=== PATIENT | male | born 1960 | race Caucasian/White ===

== ENCOUNTER → 2018-08-15 08:13 | Outpatient (CLI) | payer OTHER, SELFPAY ==
[2018-08-15 09:53] LABS: Alanine Aminotransferase 34 IU/L (21-72); Albumin 4.3 g/dL (3.5-5.0); Albumin Globulin Ratio 1.5 (1.0-2.8); Alkaline Phosphatase 70 U/L (38-126); Aspartate Aminotransferase 26 IU/L (17-59); BUN Creatinine Ratio 16.7 (6-22); Bilirubin Total 0.9 mg/dL (0.2-1.3); Blood Urea Nitrogen 15 mg/dL (9-20); Calcium 8.9 mg/dL (8.4-10.2); Carbon Dioxide 31 mmol/L (22-32); Chloride 100 mmol/L (98-107); Cholesterol 181 mg/dL (140-199); Estimated Glomerular Filt Rate > 60.0 mL/min (>60); Globulin 2.8 g/dL (1.7-4.1); Glucose 103 mg/dL (70-100); HDL Cholesterol 41 mg/dL (40-60); HEMOLYSIS < 15 (0-50); LDL Cholesterol Calculated 106 mg/dL (<100); Potassium 3.6 mmol/L (3.4-5.1); Sodium 138 mmol/L (137-145); Total Protein 7.1 g/dL (6.3-8.2); Triglycerides 172 mg/dL (35-150)
[2018-08-15 10:04] LABS: Creatinine Urine Random 279.6 mg/dL
[2018-08-15 10:08] LABS: Microalbumi Creatinin Ratio Ur 8.9 ug/mg CR (<30); Microalbumin Urine Random 2.5 mg/dL (0-1.6)
== END ==
PROVIDERS: Family Provider Family Medicine; Visit Provider Physician Assistant
DX: E78.2 Mixed hyperlipidemia (principal); I10 Essential (primary) hypertension
CPT/HCPCS: 36415; 80053; 80061; 82043; 82570

== ENCOUNTER → 2019-03-18 07:11 | Outpatient (CLI) | payer OTHER, SELFPAY ==
[2019-03-18 08:34] LABS: BUN Creatinine Ratio 21.1 (6-22); Blood Urea Nitrogen 19 mg/dL (9-20); Calcium 9.4 mg/dL (8.4-10.2); Carbon Dioxide 32 mmol/L (22-32); Chloride 103 mmol/L (98-107); Estimated Glomerular Filt Rate > 60.0 mL/min (>60); Glucose 93 mg/dL (80-110); HEMOLYSIS < 15 (0-50); Potassium 4.1 mmol/L (3.4-5.1); Sodium 141 mmol/L (137-145)
== END ==
PROVIDERS: Family Provider Family Medicine; Visit Provider Physician Assistant
DX: E78.2 Mixed hyperlipidemia (principal); I10 Essential (primary) hypertension
CPT/HCPCS: 36415; 80048

== ENCOUNTER → 2019-04-01 11:41 | Outpatient (CLI) | payer OTHER, SELFPAY ==
[2019-04-01 13:33] LABS: Prostate Specific Antigen Scrn 1.46 ng/mL (0.1-4.0)
== END ==
PROVIDERS: Family Provider Family Medicine; Visit Provider Physician Assistant
DX: Z12.5 Encounter for screening for malignant neoplasm of prostate (principal)
CPT/HCPCS: 36415; G0103

== ENCOUNTER → 2019-11-25 16:16 | Outpatient (CLI) | payer OTHER, SELFPAY ==
[2019-11-25 17:15] LABS: Hematocrit 42.1 % (41-53); Hemoglobin 14.2 g/dL (13.5-17.5); Mean Corpuscular HGB Conc 33.7 % (30-36); Mean Corpuscular Volume 92.1 fL (80-100); Platelet Count 213 X10^3/uL (150-400); Red Blood Cell Count 4.58 X10^6/uL (4.5-5.9); Red Cell Distribution Width 13.8 % (11.6-14.8); White Blood Cell Count 6.7 X10^3/uL (4.5-11.0)
[2019-11-25 17:33] LABS: Alanine Aminotransferase 36 IU/L (<50); Albumin 4.6 g/dL (3.5-5.0); Albumin Globulin Ratio 1.6 (1.0-2.8); Alkaline Phosphatase 71 U/L (38-126); Aspartate Aminotransferase 30 IU/L (17-59); BUN Creatinine Ratio 25.5 (6-22); Bilirubin Total 0.7 mg/dL (0.2-1.3); Blood Urea Nitrogen 24 mg/dL (9-20); Calcium 9.6 mg/dL (8.4-10.2); Carbon Dioxide 29 mmol/L (22-32); Chloride 104 mmol/L (98-107); Estimated Glomerular Filt Rate > 60.0 mL/min (>60); Globulin 2.8 g/dL (1.7-4.1); Glucose 89 mg/dL (80-110); HEMOLYSIS < 15 (0-50); Potassium 3.9 mmol/L (3.4-5.1); Sodium 141 mmol/L (137-145); Total Protein 7.4 g/dL (6.3-8.2)
== END ==
PROVIDERS: Family Provider Family Medicine; PCP Nurse Practitioner Family; Referring Provider Nurse Practitioner Family; Visit Provider Nurse Practitioner Family
DX: Z00.00 Encounter for general adult medical examination without abnormal findings (principal); I10 Essential (primary) hypertension
CPT/HCPCS: 36415; 80053; 85027

== ENCOUNTER → 2020-08-09 10:28 | Outpatient (CLI) | payer OTHER, SELFPAY ==
[2020-08-09 11:08] LABS: Hematocrit 44.3 % (41-53); Hemoglobin 14.7 g/dL (13.5-17.5); Mean Corpuscular HGB Conc 33.1 % (30-36); Mean Corpuscular Hemoglobin 30.6 PG (26-34); Mean Corpuscular Volume 92.4 fL (80-100); Platelet Count 208 X10^3/uL (150-400); Red Blood Cell Count 4.79 X10^6/uL (4.5-5.9); Red Cell Distribution Width 13.4 % (11.6-14.8); White Blood Cell Count 6.4 X10^3/uL (4.5-11.0)
[2020-08-09 11:20] LABS: Alanine Aminotransferase 28 IU/L (<50); Albumin 4.6 g/dL (3.5-5.0); Albumin Globulin Ratio 1.6 (1.0-2.8); Alkaline Phosphatase 73 U/L (38-126); Aspartate Aminotransferase 27 IU/L (17-59); BUN Creatinine Ratio 26.1 (6-22); Bilirubin Total 1.1 mg/dL (0.2-1.3); Blood Urea Nitrogen 23 mg/dL (9-20); Calcium 9.8 mg/dL (8.4-10.2); Carbon Dioxide 31 mmol/L (22-32); Chloride 103 mmol/L (98-107); Estimated Glomerular Filt Rate > 60.0 mL/min (>60); Globulin 2.8 g/dL (1.7-4.1); Glucose 100 mg/dL (80-110); HEMOLYSIS < 15 (0-50); Sodium 141 mmol/L (137-145); Total Protein 7.4 g/dL (6.3-8.2)
[2020-08-09 11:47] LABS: Prostate Specific Antigen Scrn 1.53 ng/mL (0.1-4.0)
== END ==
PROVIDERS: Family Provider Family Medicine; PCP Nurse Practitioner Family; Referring Provider Nurse Practitioner Family; Visit Provider Nurse Practitioner Family
DX: R10.31 Right lower quadrant pain (principal); R35.0 Frequency of micturition; Z12.5 Encounter for screening for malignant neoplasm of prostate
CPT/HCPCS: 36415; 80053; 85027; G0103

== ENCOUNTER → 2020-08-17 09:26 | Outpatient (CLI) | payer OTHER, SELFPAY ==
--- NOTE | 2020-08-17 09:29 | DI.US.S_ITS ---
PROCEDURE: US ABDOMEN COMPLETE INDICATIONS: right inguinal pain, also please look at kidneys TECHNIQUE: Real-time scanning was performed of the abdominal and retroperitoneal organs, with image documentation. COMPARISON: None. FINDINGS: Liver: Liver is normal in size and homogeneous in echotexture. Gallbladder: No gallstones. No gallbladder wall thickening, pericholecystic fluid or sonographic Yanez's sign. Biliary ducts: Intrahepatic bile ducts are non-dilated. Extrahepatic bile duct caliber measures 3 mm. Normal is 6-7 mm or less in diameter, or 10 mm or less post-cholecystectomy. Pancreas: Visualized portions of the pancreas are sonographically normal. Spleen: Spleen is normal in size and homogeneous in echotexture. Kidneys: Kidneys are normal in size and echotexture. Right kidney measures 11.8 cm long; left kidney measures 12.3 cm long. No hydronephrosis or nephrolithiasis. There is a 2.7 cm diameter parapelvic cyst in left kidney. No solid masses. Aorta: Visualized aorta is normal in caliber at less than 3 cm. Iliacs: Proximal common iliac arteries are normal in caliber at less than 2.5 cm. IVC: Intrahepatic inferior vena cava is patent. Miscellaneous: No free abdominal fluid. Prominent left inguinal lymph nodes are seen in the right groin; the largest measuring 0.7 x 2.6 cm. Possible left inguinal hernia. IMPRESSION: 1. Possible right inguinal hernia. Unfortunately, the patient was unable to perform consistent Valsalva. If clinically indicated, CT may be helpful. 2. Prominent left inguinal lymph nodes, most likely reactive. 3. A 2.7 cm parapelvic cyst in the left kidney. Dictated by: Barbi Keller M.D. on 08/17/2020 at 11:22 Approved by: Barbi Keller M.D. on 08/17/2020 at 11:27
== END ==
PROVIDERS: Family Provider Family Medicine; PCP Nurse Practitioner Family; Referring Provider Nurse Practitioner Family; Visit Provider Nurse Practitioner Family
DX: R10.31 Right lower quadrant pain (principal); R35.0 Frequency of micturition; Q61.01 Congenital single renal cyst
CPT/HCPCS: 76700

== ENCOUNTER → 2020-08-27 09:52 | Outpatient (CLI) | payer OTHER, SELFPAY ==
--- NOTE | 2020-08-27 09:54 | DI.MRI.S_ITS ---
PROCEDURE: MR PELVIS WO CON INDICATIONS: poss inguinal hernia right side TECHNIQUE: Axial 2-D FLASH in- and [id number], axial breath-hold T2 FSE, axial STIR FSE. Optional contrast may be given, followed by axial 2-D FLASH with fat saturation acquired over the lesion of concern. COMPARISON: [facility], US, US ABDOMEN COMPLETE, 08/17/2020, 9:09. FINDINGS: Image quality: Excellent. Region of interest: Right groin where prior ultrasound head raise concern for possible inguinal hernia Bones: Nearby osseous structures demonstrate normal overall marrow signal. IMPRESSION: MR scanning over the inguinal canals bilaterally show no evidence of fat containing or bowel containing hernia. No adenopathy is seen. Symmetric lymph nodes are seen at each groin, 1 each, and these are not enlarged, with short axis dimension 1.1 cm. No visualized evidence of marrow space disease or soft tissue mass. Dictated by: Kana Mcmahan M.D. on 08/28/2020 at 13:57 Approved by: Kana Mcmahan M.D. on 08/28/2020 at 14:00
== END ==
PROVIDERS: Family Provider Family Medicine; PCP Nurse Practitioner Family; Referring Provider Nurse Practitioner Family; Visit Provider Nurse Practitioner Family
DX: R93.5 Abnormal findings on diagnostic imaging of other abdominal regions, including retroperitoneum (principal); R10.31 Right lower quadrant pain
CPT/HCPCS: 72195

== ENCOUNTER → 2020-10-24 15:17 | Outpatient (CLI) | payer OTHER, SELFPAY ==
[2020-10-24 18:51] LABS: Bacteria Urine None Seen
[2020-10-24 19:24] LABS: Appearance Urine UA SL CLOUDY; Bilirubin Urine UA NEGATIVE (NEGATIVE); Color Urine UA RED; Glucose Urine UA NEGATIVE (Negative); Ketones Urine UA NEGATIVE (NEGATIVE); Leukocyte Esterase Urine UA TRACE (NEGATIVE); Nitrite Urine UA NEGATIVE (Negative); Occult Blood Urine UA 3+ (Negative); Protein Urine UA 1+ (Negative); Specific Gravity Urine UA <=1.005 (1.000-1.035); Urobilinogen Urine UA 0.2 E.U./dL (0.2)
[2020-10-24 19:54] LABS: Culture Indicated Urine Cult Not Indicated; RBC Urine 30-100/HPF (0-5/HPF); WBC Urine 0-1/HPF (0-5/HPF)
== END ==
PROVIDERS: Family Provider Family Medicine; PCP Nurse Practitioner Family; Visit Provider Nurse Practitioner Family
DX: R31.29 Other microscopic hematuria (principal); R10.2 Pelvic and perineal pain; R30.0 Dysuria
CPT/HCPCS: 81001

== ENCOUNTER → 2020-10-24 15:42 | Outpatient (CLI) | payer OTHER, SELFPAY ==
--- NOTE | 2020-10-24 15:44 | DI.CT.S_ITS ---
PROCEDURE: CT KIDNEY URETER BLADDER (KUB) INDICATIONS: hematuria, right flank pain TECHNIQUE: Axial sections were acquired from the lung bases to the pubic symphysis. Coronal and sagittal reformats were performed. For radiation dose reduction, the following was used: automated exposure control, adjustment of mA and/or kV according to patient size. COMPARISON:None. FINDINGS: Image quality: Excellent. Lung bases: Unremarkable. Heart: No significant findings. URINARY: Right Kidney: No stones or hydronephrosis. Right Ureter: No hydroureter. Left Kidney: Punctate mid kidney 1 mm calculus at the collecting system, but at the ureteropelvic junction on the left there is a 3 mm stone producing a mild degree of hydronephrosis on left. This calculus has a radiodensity of 486 Hounsfield units. Left Ureter: No hydroureter. Bladder: Normal wall thickness. No stones. ABDOMEN: Liver: Unremarkable. Gallbladder: Unremarkable. Biliary ducts: Unremarkable. Pancreas: Unremarkable. Spleen: Unremarkable. Adrenal Glands: Unremarkable. Stomach and Bowel: Stomach, small bowel loops, and colon are unremarkable. Peritoneum: No abnormal intraperitoneal fluid. No free air. Ventral Wall: No hernia. Abdominal Nodes: No enlarged retroperitoneal or mesenteric lymph nodes. Vessels: Aorta and inferior vena cava are normal in size. PELVIS: Pelvic Organs: Unremarkable. Pelvic Nodes: Unremarkable. Miscellaneous: No inguinal hernias are seen. Bones: Unremarkable. IMPRESSION: 3 mm ureteropelvic junction calculus at the left urinary tract producing a mild hydronephrosis on the left. There is an additional punctate calculus at the middle 3rd collecting system of the left kidney that is nonobstructive. Dictated by: Kana Mcmahan M.D. on 10/24/2020 at 16:13 Approved by: Kana Mcmahan M.D. on 10/24/2020 at 16:16
[2020-10-24 17:35] LABS: Hematocrit 44.2 % (41-53); Mean Corpuscular HGB Conc 33.9 % (30-36); Mean Corpuscular Hemoglobin 31.3 PG (26-34); Mean Corpuscular Volume 92.3 fL (80-100); Platelet Count 216 X10^3/uL (150-400); Red Blood Cell Count 4.79 X10^6/uL (4.5-5.9); Red Cell Distribution Width 13.7 % (11.6-14.8); White Blood Cell Count 7.5 X10^3/uL (4.5-11.0)
[2020-10-24 17:50] LABS: Alanine Aminotransferase 27 IU/L (<50); Albumin 4.6 g/dL (3.5-5.0); Albumin Globulin Ratio 1.5 (1.0-2.8); Alkaline Phosphatase 72 U/L (38-126); Aspartate Aminotransferase 30 IU/L (17-59); BUN Creatinine Ratio 15.8 (6-22); Blood Urea Nitrogen 15 mg/dL (9-20); Calcium 9.6 mg/dL (8.4-10.2); Carbon Dioxide 27 mmol/L (22-32); Chloride 101 mmol/L (98-107); Estimated Glomerular Filt Rate > 60.0 mL/min (>60); Glucose 96 mg/dL (80-110); HEMOLYSIS < 15 (0-50); Potassium 3.5 mmol/L (3.4-5.1); Sodium 139 mmol/L (137-145); Total Protein 7.6 g/dL (6.3-8.2)
== END ==
PROVIDERS: Family Provider Family Medicine; PCP Nurse Practitioner Family; Referring Provider Nurse Practitioner Family; Visit Provider Nurse Practitioner Family
DX: R31.29 Other microscopic hematuria (principal); R10.9 Unspecified abdominal pain; N13.2 Hydronephrosis with renal and ureteral calculous obstruction; R10.2 Pelvic and perineal pain; R30.0 Dysuria
CPT/HCPCS: 36415; 74176; 80053; 81001; 85027

== ENCOUNTER → 2021-02-06 14:02 | Outpatient (CLI) | payer OTHER, SELFPAY ==
--- NOTE | 2021-02-06 14:05 | DI.CT.S_ITS ---
PROCEDURE: CT KIDNEY URETER BLADDER (KUB) INDICATIONS: kidney stone TECHNIQUE: Axial sections were acquired from the lung bases to the pubic symphysis. Coronal and sagittal reformats were performed. For radiation dose reduction, the following was used: automated exposure control, adjustment of mA and/or kV according to patient size. COMPARISON: None. FINDINGS: Image quality: Excellent. Lung bases: Unremarkable. Heart: No significant findings. URINARY: Nonobstructing punctate calculus in the left posterior upper pole (series 2, image 43). No additional urinary tract calculus. Suspected peripelvic cyst anterior to the left renal pelvis extending into the upper pole (versus a mildly dilated upper pole calyx) No hydronephrosis or hydroureter. Urinary bladder unremarkable. ABDOMEN: Liver: Uniform attenuation. Gallbladder: Unremarkable. Biliary ducts: Nondilated. Pancreas: No adjacent inflammatory changes or pancreatic ductal dilatation. Spleen: Normal size and appearance. Adrenal Glands: No nodule or mass. Stomach and Bowel: No abnormally dilated or thickened loop of bowel. No pericolonic or mesenteric inflammatory changes. Peritoneum: No abnormal intraperitoneal fluid. No free air. Ventral Wall: No hernia. Abdominal Nodes: No enlarged retroperitoneal or mesenteric lymph nodes. Vessels: Aorta and inferior vena cava are normal in size. PELVIS: Pelvic Organs: Enlarged prostate. Pelvic Nodes: No threshold enlarged pelvic or inguinal lymph node. Miscellaneous: Bilateral fat containing inguinal hernias. Bones: No acute or suspicious osseous lesion. Degenerative changes throughout the spine. IMPRESSION: Punctate nonobstructing left renal calculus. Small left anterior cysts versus mild left renal pelvis and adjacent anterior upper pole calyx. Dictated by: Anthony Vazquez M.D. on 02/06/2021 at 15:35 Approved by: Anthony Vazquez M.D. on 02/06/2021 at 15:40
== END ==
PROVIDERS: Family Provider Family Medicine; PCP Nurse Practitioner Family; Referring Provider Specialist; Visit Provider Specialist
DX: N20.0 Calculus of kidney (principal); R10.9 Unspecified abdominal pain
CPT/HCPCS: 74176

== ENCOUNTER → 2021-02-14 15:17 | Outpatient (CLI) | payer OTHER, SELFPAY ==
[2021-02-14 16:19] LABS: Calcium 9.4 mg/dL (8.4-10.2); Uric Acid 5.7 mg/dL (3.5-8.5)
[2021-02-15 16:27] LABS: Calcium 9.5 mg/dL (8.6-10.2); Parathyroid Hormone, Intact 46 pg/mL (15-65)
== END ==
PROVIDERS: Family Provider Family Medicine; PCP Nurse Practitioner Family; Referring Provider Specialist; Visit Provider Specialist
DX: N20.0 Calculus of kidney (principal)
CPT/HCPCS: 36415; 82310; 83970; 84550

== ENCOUNTER → 2021-11-02 17:25 | Outpatient (CLI) | payer OTHER, SELFPAY ==
[2021-11-02 18:14] LABS: Creatinine Urine Random 169.6 mg/dL
[2021-11-02 18:19] LABS: Microalbumin Urine Random 1.2 mg/dL (0-1.6)
== END ==
PROVIDERS: Family Provider Family Medicine; PCP Pediatrics; Referring Provider Pediatrics; Visit Provider Pediatrics
DX: I10 Essential (primary) hypertension (principal)
CPT/HCPCS: 82043; 82570

== ENCOUNTER → 2021-11-05 16:48 | Outpatient (CLI) | payer OTHER, SELFPAY ==
--- NOTE | 2021-11-05 16:51 | DI.RAD.S_ITS ---
PROCEDURE: XR ACUTE ABDOMEN SERIES INDICATIONS: ascites TECHNIQUE: One view chest and two views of the abdomen were acquired. COMPARISON: None. FINDINGS: Surgical changes and devices: None. Chest: Lungs are clear. Heart size is normal. No pleural effusions. No pneumoperitoneum. Abdomen: Bowel gas pattern is normal. No suspicious calcifications. Visualized solid organ contours appear normal. Bones: Fish shaped scoliotic curvature is present. IMPRESSION: No bowel obstruction. Ascites is difficult to determine on the basis of x-ray exam. If concern persists, CT or ultrasound is recommended. Dictated by: Christine Batista M.D. on 11/06/2021 at 15:03 Approved by: Christine Batista M.D. on 11/06/2021 at 15:05
[2021-11-05 17:14] LABS: Add Manual Diff / Slide Review NO; Basophils Absolute Auto 0 /uL (0-100); Basophils Percent Auto 0.6 % (0-2); Eosinophils Absolute Auto 100 /uL (0-450); Eosinophils Percent Auto 1.5 % (2-4); Hematocrit 41.1 % (41-53); Hemoglobin 14.1 g/dL (13.5-17.5); Lymphocytes Absolute Auto 1700 /uL (1100-4500); Lymphocytes Percent Auto 30.1 % (25-40); Mean Corpuscular HGB Conc 34.2 % (30-36); Mean Corpuscular Hemoglobin 31.2 PG (26-34); Mean Corpuscular Volume 91.1 fL (80-100); Monocytes Absolute Auto 400 /uL (0-900); Monocytes Percent Auto 7.8 % (3-14); Neutrophils Absolute Auto 3400 /uL (1500-7000); Platelet Count 200 X10^3/uL (150-400); Red Blood Cell Count 4.51 X10^6/uL (4.5-5.9); Red Cell Distribution Width 14.3 % (11.6-14.8); White Blood Cell Count 5.7 X10^3/uL (4.5-11.0)
[2021-11-05 17:23] LABS: INR 1.2 (0.9-1.3); Prothrombin Time 12.9 SECONDS (10.1-12.7)
[2021-11-05 17:33] LABS: Alanine Aminotransferase 22 IU/L (<50); Albumin 4.6 g/dL (3.5-5.0); Albumin Globulin Ratio 1.7 (1.0-2.8); Alkaline Phosphatase 74 U/L (38-126); Aspartate Aminotransferase 24 IU/L (17-59); BUN Creatinine Ratio 14.4 (6-22); Bilirubin Total 0.8 mg/dL (0.2-1.3); Blood Urea Nitrogen 13 mg/dL (9-20); Calcium 9.4 mg/dL (8.4-10.2); Carbon Dioxide 29 mmol/L (22-32); Chloride 102 mmol/L (98-107); Estimated Glomerular Filt Rate > 60 mL/min (>60); Globulin 2.7 g/dL (1.7-4.1); Glucose 106 mg/dL (80-110); HEMOLYSIS < 15 (0-50); Potassium 3.7 mmol/L (3.4-5.1); Sodium 139 mmol/L (137-145); Total Protein 7.3 g/dL (6.3-8.2)
[2021-11-05 18:16] LABS: TSH w/ Reflex to FT4 1.44 uIU/mL (0.47-4.68)
[2021-11-05 18:19] LABS: Appearance Urine UA CLEAR; Bilirubin Urine UA NEGATIVE (NEGATIVE); Color Urine UA YELLOW; Glucose Urine UA NEGATIVE (Negative); Ketones Urine UA NEGATIVE (NEGATIVE); Leukocyte Esterase Urine UA NEGATIVE (NEGATIVE); Nitrite Urine UA NEGATIVE (Negative); Occult Blood Urine UA TRACE-LYSED (Negative); Protein Urine UA NEGATIVE (Negative); Specific Gravity Urine UA 1.015 (1.000-1.035); Urobilinogen Urine UA 0.2 E.U./dL (0.2); pH Urine UA 5.5 (4.5-8.0)
[2021-11-05 19:33] LABS: Bacteria Urine None Seen; Culture Indicated Urine Cult Not Indicated; RBC Urine 0-1/HPF (0-5/HPF); WBC Urine None Seen (0-5/HPF)
== END ==
PROVIDERS: Family Provider Family Medicine; PCP Pediatrics; Referring Provider Pediatrics; Visit Provider Pediatrics
DX: E78.2 Mixed hyperlipidemia (principal); I10 Essential (primary) hypertension; R18.8 Other ascites; R31.9 Hematuria, unspecified
CPT/HCPCS: 36415; 74022; 80053; 81001; 84443; 85025; 85610

== ENCOUNTER → 2021-11-09 15:54 | Outpatient (CLI) | payer OTHER, SELFPAY ==
--- NOTE | 2021-11-09 15:57 | DI.US.S_ITS ---
PROCEDURE: US ABDOMEN COMPLETE INDICATIONS: ascites TECHNIQUE: Real-time scanning was performed of the abdominal and retroperitoneal organs, with image documentation. COMPARISON: [facility], US, US ABDOMEN COMPLETE, 08/17/2020, 9:09. FINDINGS: Study limited secondary to patient scanning characteristics. Liver: Liver is not well visualized. No gross abnormalities identified. Gallbladder: Gallbladder is normal in sonographic appearance without gallstones, gallbladder wall thickening, pericholecystic fluid, or abnormal sonographic Yanez's. Biliary ducts: Intrahepatic and extrahepatic biliary ducts are not well visualized. Common bile duct measures approximately 2.5 mm in diameter. Pancreas: Visualized portions of the pancreas are sonographically normal. Spleen: Spleen is normal in size and homogeneous in echotexture. Kidneys: Kidneys are normal in size and echotexture. Right kidney measures 11.3 cm long; left kidney measures 11.4 cm long. There is a 2.3 x 3.6 x 2.4 cm cyst in the left mid kidney. Possible nonobstructing stone noted in the lower pole the left kidney measuring approximately 5 mm in size. No hydronephrosis . No solid masses. Aorta: Visualized aorta is normal in caliber at less than 3 cm. Iliacs: Proximal common iliac arteries are normal in caliber at less than 2.5 cm. IVC: IVC not well visualized. Miscellaneous: No free abdominal fluid. IMPRESSION: Moderately limited evaluation of the abdomen secondary to patient scanning characteristics and bowel gas. The liver, gallbladder, pancreas, and right kidney appear unremarkable. There is a 3.6 cm left mid pole renal cyst and questionable nonobstructing 5 mm left lower pole renal stone. Dictated by: Papito Wayne M.D. on 11/09/2021 at 18:55 Approved by: Papito Wayne M.D. on 11/09/2021 at 18:59
== END ==
PROVIDERS: Family Provider Family Medicine; PCP Pediatrics; Referring Provider Pediatrics; Visit Provider Pediatrics
DX: I10 Essential (primary) hypertension (principal); E78.2 Mixed hyperlipidemia; R18.8 Other ascites; N28.1 Cyst of kidney, acquired
CPT/HCPCS: 76700

== ENCOUNTER → 2022-09-03 15:30 | Outpatient (CLI) | payer OTHER, SELFPAY ==
--- NOTE | 2022-09-03 15:33 | DI.RAD.S_ITS ---
PROCEDURE: XR KUB INDICATIONS: kidney stones TECHNIQUE: One view of the abdomen acquired. COMPARISON: [facility], CR, XR ACUTE ABDOMEN SERIES, 11/05/2021, 16:55. FINDINGS: Surgical changes and devices: None. Bowel: Bowel gas pattern is normal. Soft tissues: No suspicious abdominal calcifications. Visualized solid organ contours appear normal in size. Bones: No suspicious bony lesions. Stable S shaped scoliosis of the thoracolumbar spine. IMPRESSION: No definite renal stone by plain film radiograph. Dictated by: Christina Hernandes MD, PhD on 09/03/2022 at 15:47 Approved by: Christina Hernandes MD, PhD on 09/03/2022 at 15:48
[2022-09-03 17:08] LABS: Prostate Specific Antigen 1.78 ng/mL (0.10-4.00)
== END ==
LOC: RAD 15:32 → LAB 15:37
PROVIDERS: Family Provider Family Medicine; PCP Family Medicine; Referring Provider Specialist; Visit Provider Specialist
DX: N40.1 Benign prostatic hyperplasia with lower urinary tract symptoms (principal); N20.0 Calculus of kidney
CPT/HCPCS: 74018; 84153

== ENCOUNTER → 2022-12-19 06:46 | Outpatient (CLI) | payer OTHER, SELFPAY ==
[2022-12-19 09:08] LABS: Alanine Aminotransferase 30 IU/L (<50); Albumin 4.1 g/dL (3.5-5.0); Albumin Globulin Ratio 1.6 (1.0-2.8); Alkaline Phosphatase 73 U/L (38-126); Aspartate Aminotransferase 26 IU/L (17-59); BUN Creatinine Ratio 13.1 (6-22); Bilirubin Total 0.9 mg/dL (0.2-1.3); Blood Urea Nitrogen 11 mg/dL (9-20); Calcium 8.8 mg/dL (8.4-10.2); Carbon Dioxide 32 mmol/L (22-32); Chloride 100 mmol/L (98-107); Cholesterol 168 mg/dL (140-199); Estimated Glomerular Filt Rate > 60 mL/min (>60); Globulin 2.5 g/dL (1.7-4.1); Glucose 93 mg/dL (80-110); HDL Cholesterol 42 mg/dL (40-60); HEMOLYSIS < 15 (0-50); LDL Cholesterol Calculated 103 mg/dL (<100); Potassium 3.8 mmol/L (3.4-5.1); Sodium 139 mmol/L (137-145); Total Protein 6.6 g/dL (6.3-8.2); Triglycerides 115 mg/dL (35-150)
[2022-12-19 09:34] LABS: Prostate Specific Antigen Scrn 2.13 ng/mL (0.1-4.0)
[2022-12-19 11:04] LABS: Creatinine Urine Random 157.8 mg/dL
[2022-12-19 11:06] LABS: Microalbumi Creatinin Ratio Ur 6.9 ug/mg CR (<30); Microalbumin Urine Random 1.1 mg/dL (0-1.6)
== END ==
PROVIDERS: Family Provider Family Medicine; PCP Family Medicine; Referring Provider Family Medicine; Visit Provider Family Medicine
DX: E78.2 Mixed hyperlipidemia (principal); I10 Essential (primary) hypertension; N40.0 Benign prostatic hyperplasia without lower urinary tract symptoms; R10.13 Epigastric pain; Z12.5 Encounter for screening for malignant neoplasm of prostate
CPT/HCPCS: 36415; 80053; 80061; 82043; 82570; G0103

== ENCOUNTER 2023-08-08 01:41 | Emergency (ER) | payer OTHER, SELFPAY ==
[2023-08-08 02:01] VITALS: BP 188/111; PULSE 69; RESP 19; TEMP 36.6; O2SAT 96; BMI 32.1
--- NOTE | 2023-08-08 02:01 | ED.GENADULT ---
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 He feels worse when he lays flat and little bit better when he is upright. He denies chest pain or shortness of breath. He was thinking it might be constipation but he had a normal bowel movement today. He suffers from hypertension and takes lisinopril. This has been present for about 5 days. He says it is worse when sitting or lying down. It seems to go away when he stands up. Says he has had a lot of gas lately. He wonders if it might be related to constipation but he did have a bowel movement today and it did not seem to improve at all. He had a similar episode some years ago and it resolved spontaneously. He has had no previous abdominal surgeries he. He has no back pain. He has does have a history of kidney stone but he says does not feel like that at all. No urinary symptoms at all. No fever Related Data Previous Rx's Medication Instructions Recorded sildenafil (pulm.hypertension) 20 20 mg PO .As needed #30 tabs 09/24/22 mg tablet lisinopril 10 1 tab PO QAM #90 tabs 03/13/23 mg-hydrochlorothiazide 12.5 mg tablet tamsulosin 0.4 mg capsule 0.4 mg PO DAILY #90 caps 08/06/23 peg 3350-electrolytes 236 240 ml PO Q10M #4,000 mL 08/08/23 gram-22.74 gram-6.74 gram-5.86 gram solution (Golytely) Allergies Allergy/AdvReac Type Severity Reaction Status Date / Time bee pollen [BEE POLLEN] Allergy Intermediate swelling Verified 03/13/23 16:01 Edhhmyw-SAA-SlQ Reductase AdvReac Intermediate flank pain Verified 03/13/23 16:01 Inhibitor [Egwqcdk-Pcb-Jqf Reductase Inhibitor] Patient History Medical History (Updated 08/08/23 @ 03:44 by Robb Cordero MD) BPH w urinary obs/LUTS Erectile dysfunction due to arterial disease History of nephrolithiasis Ascites Nephrolithiasis Left renal stone Kidney stone on right side (10/2020) Hydronephrosis of right kidney (10/2020) Right flank pain Frequent urination Right inguinal pain Medication refill Family History Father Cancer Coronary artery disease Diabetes mellitus Hyperlipidemia Hypertension Mother Cancer Hyperlipidemia Hypertension UTI (urinary tract infection) Renal failure Social History marital status: unmarried,single number of children: 2 Smoking Status: Never smoker second hand exposure: No alcohol intake: current (Tequila about 2 times a week in the evening.) substance use type: marijuana (I smoke marijuana about 2 times a week in the evening with the Tequila.) caffeine: Yes Smoking Status: Never smoker Exam Narrative Exam Narrative: GENERAL: Alert, cooperative and in no distress. HEAD: Atraumatic. Normocephalic. EYES: Sclera are clear without icterus. Extraocular movements are full. ENT: No rhinorrhea. NECK: Supple. Full range of motion. CARDIOVASCULAR: Normal rate and rhythm without murmur gallop or rub. RESPIRATORY: Clear to auscultation. Breath sounds equal bilaterally. No wheezes, rales, or rhonchi. GASTROINTESTINAL: Abdomen soft, non-tender, nondistended. EXTREMITIES: No edema, full range of motion. No obvious trauma. BACK: Normal inspection, no CVA tenderness. NEURO: Nonfocal examination, normal speech SKIN: No rash or erythema of visible areas PSYCH: Normally oriented. Normal range of affect. Appropriate behavior Initial Vital Signs Initial Vital Signs: Vital Signs Temperature 97.8 F 08/08/23 02:01 Pulse Rate 69 08/08/23 02:01 Respiratory Rate 19 08/08/23 02:01 Blood Pressure 188/111 H 08/08/23 02:01 Pulse Oximetry 96 08/08/23 02:01 Oxygen Delivery Method Room Air 08/08/23 02:01 Course Orders Ordered: ED Orders 08/08/23 02:09 CT kidney ureter bladder (KUB) Stat 08/08/23 02:17 UA dip and micro [Urinalysis and Microscopic] Stat 08/08/23 02:22 CBC Auto Diff [Complete Blood Count AUTO DIFF] Stat CMP [Comprehensive Metabolic Panel] Stat D Dimer Stat Lipase Stat Troponin I Stat 08/08/23 02:30 EKG-12 Lead Stat 08/08/23 03:19 Chest [XR chest 2V] Stat Vital Signs Vital signs: Vital Signs - 8 hr 08/08/23 02:01 Temperature 97.8 F Pulse Rate 69 Respiratory Rate 19 Blood Pressure 188/111 H Pulse Oximetry 96 Oxygen Delivery Method Room Air Medical Decision Making Lab Data 08/08/23 02:22 08/08/23 02:22 Labs: Lab Results 08/08/23 08/08/23 Range/Units 02:17 02:22 WBC 7.6 (4.5-11.0) X10^3/uL RBC 4.95 (4.5-5.9) X10^6/uL Hgb 15.5 (13.5-17.5) g/dL Hct 45.6 (41-53) % MCV 92.0 (80-100) fL MCH 31.3 (26-34) PG MCHC 34.0 (30-36) % RDW 13.8 (11.6-14.8) % Plt Count 181 (150-400) X10^3/uL Neut % (Auto) 60.6 (50-75) % Lymph % (Auto) 28.3 (25-40) % [place] % (Auto) 8.4 (3-14) % Eos % (Auto) 2.4 (2-4) % Baso % (Auto) 0.3 (0-2) % Neut # (Auto) 4600 (6101-2196) /uL Lymph # (Auto) 2100 (3789-7485) /uL [place] # (Auto) 600 (0-900) /uL Eos # (Auto) 200 (0-450) /uL Baso # (Auto) 0 (0-100) /uL D-Dimer 337 (<500) ng/ml Sodium 140 (137-145) mmol/L Potassium 3.7 (3.4-5.1) mmol/L Chloride 106 (98-107) mmol/L Carbon Dioxide 30 (22-32) mmol/L BUN 14 (9-20) mg/dL Creatinine 0.84 (0.66-1.25) mg/dL Estimated GFR > 60 (>60) mL/min BUN/Creatinine Ratio 16.7 (6-22) Glucose 111 H (80-110) mg/dL Calcium 9.2 (8.4-10.2) mg/dL Total Bilirubin 1.3 (0.2-1.3) mg/dL AST 31 (17-59) IU/L ALT 36 (<50) IU/L Alkaline Phosphatase 66 (38-126) U/L Troponin I < 0.012 (0.01-0.034) ng/mL Total Protein 7.6 (6.3-8.2) g/dL Albumin 4.5 (3.5-5.0) g/dL Globulin 3.1 (1.7-4.1) g/dL Albumin/Globulin Ratio 1.5 (1.0-2.8) Lipase 54 (23-300) U/L Urine Color Yellow Urine Appearance Clear Urine pH 7.5 (4.5-8.0) Ur Specific [place] 1.010 (1.000-1.035) Urine Protein Negative (Negative) Urine Glucose (UA) Negative (Negative) g/dL Urine Ketones Negative (NEGATIVE) Urine Occult Blood Negative (Negative) Urine Nitrate Negative (Negative) Urine Bilirubin Negative (NEGATIVE) Urine Urobilinogen 0.2 (0.2) E.U./dL Ur Leukocyte Esterase Negative (NEGATIVE) Urine RBC None seen (0-5/HPF) Urine WBC None seen (0-5/HPF) Ur Squamous Epith Cells None seen (0-5/HPF) Urine Bacteria None seen (None) Ur Culture Indicated? Cult not indicated Vol Urine Centrifuged 10ml (spun) Urine Dip Bedside Urine Glucose Negative Bedside Urine Bilirubin - Negative Bedside Urine Ketone - Negative Urine Specific [place] 1.010 Bedside Urine Occult Blood - Negative Bedside Urine pH 7.0 Bedside Urine Protein - Negative Bedside Urine Urobilinogen +/- 1mg Bedside Urine Nitrite + Positive Bedside Urine Leukocytes + 70 Esterase Point of care testing: Urine Dip Bedside Urine Glucose Negative Bedside Urine Bilirubin - Negative Bedside Urine Ketone - Negative Urine Specific [place] 1.010 Bedside Urine Occult Blood - Negative Bedside Urine pH 7.0 Bedside Urine Protein - Negative Bedside Urine Urobilinogen +/- 1mg Bedside Urine Nitrite + Positive Bedside Urine Leukocytes + 70 Esterase ECG Data Interpretation: ECG obtained at 2:41 a.m. shows sinus rhythm with premature ventricular contractions with a ventricular rate of 98 and QTC of 469. He has a right bundle-branch block. LVH and poor R-wave progression. MDM Narrative Medical decision making narrative: The patient has unusual symptoms of abdominal discomfort which only seemed to be present when he is lying down. He also notices some breathlessness when he is lying down. Workup here is entirely reassuring. His suspicion is that this is all related to constipation which is certainly plausible. I recommend items named in the discharge instructions. Discharge Plan Departure Patient Disposition: Home Clinical Impression: Abdominal pain Instructions: DI for Abdominal Pain-Adult, DI for Constipation Activity Restrictions/Additional Instructions: No immediately dangerous cause for your symptoms was identified after detailed imaging and laboratory testing. I think the idea that constipation is playing a role here is certainly plausible. I recommend MiraLax or Ex-Lax as instructed on the packaging regularly to treat or prevent this. If these treatments are not effective go ahead and use the Colyte prep that I have prescribed to the [facility] pharmacy. As always, return to the ED for severe symptoms such as high fever, repeated vomiting or severe abdominal pain. Prescriptions: New peg 3350-electrolytes [Golytely] 236-22.74-6.74 -5.86 gram recon soln 240 ml PO Q10M Qty: 4000 0RF Rx Instructions: until fecal effluent is clear No Action tamsulosin 0.4 mg capsule 0.4 mg PO DAILY Qty: 90 0RF lisinopril-hydrochlorothiazide 10-12.5 mg tablet 1 tab PO QAM Qty: 90 3RF sildenafil (pulm.hypertension) 20 mg tablet 20 mg PO .As needed Qty: 30 3RF Rx Instructions: Take 1-4 tablets by mouth 1 hour before sexual activity as directed and as needed daily. Referrals: Josie Nicolas DO [Primary Care Provider] - Stand Alone Forms: Patient Portal/API, Work Release Note
--- NOTE | 2023-08-08 02:09 | DI.CT.S_ITS ---
PROCEDURE: CT KIDNEY URETER BLADDER (KUB) INDICATIONS: abdominal pain TECHNIQUE: Axial sections were acquired from the lung bases to the pubic symphysis. Coronal and sagittal reformats were performed. For radiation dose reduction, the following was used: automated exposure control, adjustment of mA and/or kV according to patient size. COMPARISON: [facility], CT, CT KIDNEY URETER BLADDER (KUB), 02/06/2021, 14:07. FINDINGS: Image quality: Diagnostic. Evaluation of the visceral organs is limited due to the lack of intravenous contrast. Lower Chest: No significant findings. URINARY: Right Kidney: No stones or hydronephrosis. Right Ureter: No hydroureter. Left Kidney: No hydronephrosis. A few nonobstructive nephroliths measuring 2 mm (2/36). Parapelvic simple cyst. No complex cystic lesion which requires follow up. Left Ureter: No hydroureter. Bladder: Decompressed with circumferential bladder wall thickening. No stones. ABDOMEN: Liver: No contour-deforming solid mass. Gallbladder: No radiopaque gallstones or wall thickening. Biliary ducts: No biliary dilation. Pancreas: No ductal dilation. Spleen: Size is within normal limits. Adrenal Glands: No adrenal nodules. Stomach and Bowel: Stomach appears grossly normal. Small and large bowel is normal in caliber, without obstruction. Normal appendix (2/63). Peritoneum: No abnormal intraperitoneal fluid. No free air. Ventral Wall: Tiny umbilical hernia containing a knuckle of bowel with no evidence of inflammation (2/58). Abdominal Nodes: No enlarged retroperitoneal or mesenteric lymph nodes. Vessels: Aorta and inferior vena cava are normal in size. Mild calcification of the abdominal aorta and branch vessels. PELVIS: Pelvic Organs: Moderate prostatomegaly. Pelvic Nodes: Unremarkable. Miscellaneous: Small bilateral fat containing inguinal hernias. Bones: No acute fractures. No aggressive appearing lytic or blastic osseous lesions. Levoconvex curvature IMPRESSION: 1. No hydronephrosis bilaterally. A few nonobstructive nephroliths in the left kidney measuring up to 2 mm. 2. Prostate is moderately enlarged. Circumferential bladder wall thickening which may be related to under distension and/or chronic bladder outlet obstruction. 3. Above average colonic stool burden, notably in the rectum. 4. Tiny umbilical hernia containing a knuckle of bowel with no evidence of strangulation. I agree with the preliminary report. Dictated by: Silverio Javed M.D. on 08/08/2023 at 8:03 Approved by: Silverio Javed M.D. on 08/08/2023 at 9:40
[2023-08-08 02:27] LABS: Appearance Urine UA CLEAR; Bilirubin Urine UA NEGATIVE (NEGATIVE); Color Urine UA YELLOW; Glucose Urine UA NEGATIVE (Negative); Ketones Urine UA NEGATIVE (NEGATIVE); Leukocyte Esterase Urine UA NEGATIVE (NEGATIVE); Nitrite Urine UA NEGATIVE (Negative); Occult Blood Urine UA NEGATIVE (Negative); Protein Urine UA NEGATIVE (Negative); Urobilinogen Urine UA 0.2 E.U./dL (0.2); pH Urine UA 7.5 (4.5-8.0)
[2023-08-08 02:34] LABS: Bacteria Urine None Seen; Culture Indicated Urine Cult Not Indicated; RBC Urine None Seen (0-5/HPF); Squamous Epithelial Cell Urine None Seen (0-5/HPF); Urine Volume 10mL (spun); WBC Urine None Seen (0-5/HPF)
[2023-08-08 02:36] LABS: Add Manual Diff / Slide Review NO; Basophils Absolute Auto 0 /uL (0-100); Basophils Percent Auto 0.3 % (0-2); Eosinophils Absolute Auto 200 /uL (0-450); Eosinophils Percent Auto 2.4 % (2-4); Hematocrit 45.6 % (41-53); Hemoglobin 15.5 g/dL (13.5-17.5); Lymphocytes Absolute Auto 2100 /uL (1100-4500); Lymphocytes Percent Auto 28.3 % (25-40); Mean Corpuscular Hemoglobin 31.3 PG (26-34); Monocytes Absolute Auto 600 /uL (0-900); Monocytes Percent Auto 8.4 % (3-14); Neutrophils Absolute Auto 4600 /uL (1500-7000); Neutrophils Percent Auto 60.6 % (50-75); Platelet Count 181 X10^3/uL (150-400); Red Blood Cell Count 4.95 X10^6/uL (4.5-5.9); Red Cell Distribution Width 13.8 % (11.6-14.8); White Blood Cell Count 7.6 X10^3/uL (4.5-11.0)
[2023-08-08 02:49] LABS: Alanine Aminotransferase 36 IU/L (<50); Albumin 4.5 g/dL (3.5-5.0); Albumin Globulin Ratio 1.5 (1.0-2.8); Alkaline Phosphatase 66 U/L (38-126); Aspartate Aminotransferase 31 IU/L (17-59); BUN Creatinine Ratio 16.7 (6-22); Bilirubin Total 1.3 mg/dL (0.2-1.3); Blood Urea Nitrogen 14 mg/dL (9-20); Calcium 9.2 mg/dL (8.4-10.2); Carbon Dioxide 30 mmol/L (22-32); Chloride 106 mmol/L (98-107); Estimated Glomerular Filt Rate > 60 mL/min (>60); Globulin 3.1 g/dL (1.7-4.1); Glucose 111 mg/dL (80-110); HEMOLYSIS 19 (0-50); Lipase 54 U/L (23-300); Potassium 3.7 mmol/L (3.4-5.1); Sodium 140 mmol/L (137-145); Total Protein 7.6 g/dL (6.3-8.2)
[2023-08-08 02:55] LABS: D Dimer 337 ng/ml (<500)
[2023-08-08 03:01] LABS: Troponin I < 0.012 ng/mL (0.01-0.034)
--- NOTE | 2023-08-08 03:19 | DI.RAD.S_ITS ---
PROCEDURE: XR CHEST 2V INDICATIONS: chest pain TECHNIQUE: 2 views of the chest were acquired. COMPARISON: [facility], , CHEST 2 VIEW, 01/29/2017, 12:32. FINDINGS: Surgical changes and devices: None. Lungs and pleura: Bibasilar patchy consolidation. No pleural effusions or pneumothorax. Mediastinum: Mediastinal contours are normal. Heart size is normal. Bones and chest wall: No suspicious bony abnormalities. Soft tissues appear unremarkable. Dextroconvex curvature of the thoracic spine. IMPRESSION: Bibasilar patchy consolidation which may reflect atelectasis, aspiration and/or pneumonia. I agree with the preliminary report. Dictated by: Silverio Javed M.D. on 08/08/2023 at 8:49 Approved by: Silverio Javed M.D. on 08/08/2023 at 8:50
[2023-08-08 04:03] VITALS: BP 174/106; PULSE 100; RESP 19; O2SAT 96
== END 2023-08-08 04:06 | disposition home or self-care (01) ==
PROVIDERS: Emergency Provider Family Medicine Addiction Medicine; Family Provider Family Medicine; PCP Family Medicine
DX: R10.9 Unspecified abdominal pain (principal); R07.9 Chest pain, unspecified
CPT/HCPCS: 36415; 71046; 74176; 80053; 81001; 81003; 83690; 84484; 85025; 85379; 93005; 99283; 99284

== ENCOUNTER → 2024-04-28 12:49 | Outpatient (CLI) | payer OTHER, SELFPAY ==
[2024-04-28 14:06] LABS: Alanine Aminotransferase 32 IU/L (<50); Albumin 4.8 g/dL (3.5-5.0); Albumin Globulin Ratio 1.8 (1.0-2.8); Alkaline Phosphatase 72 U/L (38-126); Aspartate Aminotransferase 32 IU/L (17-59); BUN Creatinine Ratio 14.7 (6-22); Bilirubin Total 1.7 mg/dL (0.2-1.3); Blood Urea Nitrogen 14 mg/dL (9-20); Calcium 9.3 mg/dL (8.4-10.2); Carbon Dioxide 27 mmol/L (22-32); Chloride 102 mmol/L (98-107); Cholesterol 189 mg/dL (140-199); Estimated Glomerular Filt Rate > 60 mL/min (>60); Globulin 2.7 g/dL (1.7-4.1); Glucose 93 mg/dL (80-110); HDL Cholesterol 38 mg/dL (40-60); HEMOLYSIS < 15 (0-50); LDL Cholesterol Calculated 127 mg/dL (<100); Potassium 3.6 mmol/L (3.4-5.1); Sodium 138 mmol/L (137-145); Total Protein 7.5 g/dL (6.3-8.2); Triglycerides 118 mg/dL (35-150)
[2024-04-28 14:38] LABS: TSH w/ Reflex to FT4 1.27 uIU/mL (0.47-4.68)
[2024-04-28 15:20] LABS: Creatinine Urine Random 176.88 mg/dL
[2024-04-28 15:25] LABS: Microalbumin Urine Random 1.1 mg/dL (0-1.6)
[2024-04-30 03:13] LABS: CRP, High Sensitivity 1.07 mg/L (0.00-3.00)
== END ==
PROVIDERS: Family Provider Family Medicine; PCP Family Medicine; Referring Provider Physician Assistant; Visit Provider Physician Assistant
DX: I10 Essential (primary) hypertension (principal); E78.2 Mixed hyperlipidemia
CPT/HCPCS: 36415; 80053; 80061; 82043; 82570; 84443; 86140

== ENCOUNTER → 2024-05-13 09:34 | Outpatient (CLI) | payer OTHER, SELFPAY | PROVIDERS: Family Provider Family Medicine; PCP Family Medicine; Referring Provider Physician Assistant; Visit Provider Physician Assistant | DX: I48.91 Unspecified atrial fibrillation (principal); I48.92 Unspecified atrial flutter; R00.2 Palpitations | CPT/HCPCS: 93246; 93248 ==

== ENCOUNTER → 2024-06-02 10:12 | Outpatient (CLI) | payer OTHER, SELFPAY ==
[2024-06-02 10:33] LABS: Hematocrit 43.9 % (41-53); Hemoglobin 14.9 g/dL (13.5-17.5); Mean Corpuscular HGB Conc 33.9 % (30-36); Mean Corpuscular Hemoglobin 31.1 PG (26-34); Mean Corpuscular Volume 91.8 fL (80-100); Platelet Count 208 X10^3/uL (150-400); Red Blood Cell Count 4.79 X10^6/uL (4.5-5.9); Red Cell Distribution Width 13.1 % (11.6-14.8); White Blood Cell Count 6.1 X10^3/uL (4.5-11.0)
[2024-06-02 10:54] LABS: Alanine Aminotransferase 31 IU/L (<50); Albumin 4.6 g/dL (3.5-5.0); Alkaline Phosphatase 62 U/L (38-126); Aspartate Aminotransferase 28 IU/L (17-59); BUN Creatinine Ratio 15.7 (6-22); Bilirubin Total 0.9 mg/dL (0.2-1.3); Blood Urea Nitrogen 16 mg/dL (9-20); Calcium 9.5 mg/dL (8.4-10.2); Carbon Dioxide 30 mmol/L (22-32); Chloride 104 mmol/L (98-107); Cholesterol 195 mg/dL (140-199); Estimated Glomerular Filt Rate > 60 mL/min (>60); Globulin 2.3 g/dL (1.7-4.1); Glucose 89 mg/dL (80-110); HDL Cholesterol 39 mg/dL (40-60); HEMOLYSIS < 15 (0-50); LDL Cholesterol Calculated 134 mg/dL (<100); Potassium 3.8 mmol/L (3.4-5.1); Sodium 138 mmol/L (137-145); Total Protein 6.9 g/dL (6.3-8.2); Triglycerides 110 mg/dL (35-150)
[2024-06-03 04:08] LABS: CRP, High Sensitivity 0.99 mg/L (0.00-3.00)
== END ==
PROVIDERS: Family Provider Family Medicine; PCP Family Medicine; Referring Provider Family Medicine; Visit Provider Family Medicine
DX: Z00.00 Encounter for general adult medical examination without abnormal findings (principal); E78.2 Mixed hyperlipidemia; I10 Essential (primary) hypertension
CPT/HCPCS: 36415; 80053; 80061; 85027; 86140

== ENCOUNTER → 2025-02-02 18:48 | Outpatient (CLI) | payer MEDICARE, SELFPAY | PROVIDERS: Family Provider Family Medicine; PCP Family Medicine; Visit Provider Nurse Practitioner Family | DX: L98.9 Disorder of the skin and subcutaneous tissue, unspecified (principal) | CPT/HCPCS: 87070; 87075; 87205 ==